=== PATIENT | female | born 1930 | race Asian ===

== ENCOUNTER 2020-02-05 18:49 | Emergency (ER) | payer OTHER ==
[~2020-02-05] VITALS: Ht 147.3 cm; Wt 59.0 kg
[~2020-02-05 18:49] MED LIST: CHOLCAP4; EZET10TA24; FLUT50SP13; GLIP5TAB12; LEVO250T19 PO; LISI-646; NITR0.2D3; RISE150T
[2020-02-05 22:53] VITALS: BP 184/73
== END 2020-02-06 01:34 | disposition home or self-care (01) ==
LOC: ER 18:53
DX: S01.511A Laceration without foreign body of lip, initial encounter (principal); S09.8XXA Other specified injuries of head, initial encounter; E11.22 Type 2 diabetes mellitus with diabetic chronic kidney disease; I12.9 Hypertensive chronic kidney disease with stage 1 through stage 4 chronic kidney disease, or unspecified chronic kidney disease; N18.9 Chronic kidney disease, unspecified; W01.0XXA Fall on same level from slipping, tripping and stumbling without subsequent striking against object, initial encounter; Y93.89 Activity, other specified; Y92.89 Other specified places as the place of occurrence of the external cause; Y99.8 Other external cause status
CPT/HCPCS: 70450; 70486